=== PATIENT | male | born 1950 | race Caucasian/White ===

== ENCOUNTER 2018-10-19 06:59 | Day surgery (SDC) | payer BC, MEDICARE ==
[~2018-10-19] VITALS: Ht 157.5 cm; Wt 68.2 kg
[2018-10-19] MEDS ORDERED: zantac (07:58)
[2018-10-19] MEDS ORDERED: lipitor (07:58)
[2018-10-19] MEDS ORDERED: glipizide (07:58)
[2018-10-19] MEDS ORDERED: lisinopril (07:58)
[2018-10-19] MEDS ORDERED: insulin (07:58)
[2018-10-19] MEDS ORDERED: descovy (07:58)
[2018-10-19] MEDS ORDERED: EVOTAZ (07:58)
[2018-10-19 08:05] VITALS: BP 165/84; PULSE 75; RESP 15; Ht 157.5 cm; Wt 68.2 kg
--- NOTE | 2018-10-19 08:24 | PREAC ---
Date/Time of Note Date/Time of Note DATE: 10/19/18 TIME: 08:22 Anesthesia Eval and Record Evaluation Time Pre-Procedure Interview DATE: 10/19/18 TIME: 08:22 Age 68 Sex male NPO: 8 hrs Preoperative diagnosis ABDOMINAL PAIN Planned procedure EGD COLON Past Medical History Past Medical History: Includes Cardio: HTN, Dyslipidemia Endo: Diabetes Heme: Other (HIV) Surgery & Anesthesia Issues No known issue Meds Anticoagulation: No Beta Belén within 24 hr: No Reason Beta Belén not given: Pt. not on B-Belén Reported Medications [evotaz] No Conflict Check 10/19/18 [descovy] No Conflict Check 10/19/18 [glipizide] No Conflict Check 10/19/18 [insulin] No Conflict Check 10/19/18 [lipitor] No Conflict Check 10/19/18 [lisinopril] No Conflict Check 10/19/18 [zantac] No Conflict Check 10/19/18 Meds reviewed: Yes Allergies Coded Allergies: No Known Allergy (Unverified , 10/19/18) Allergies Reviewed: Yes Labs/Studies Labs Reviewed: Reviewed by anesthesiologist test: N/A Pre-procedure Exam Airway: Adequate mouth opening, Adequate thyromental dist Mallampati: Mallampati I Teeth: Normal Lung: Normal Heart: Normal ASA Physical Status ASA physical status: 3 Emergency: None Planned Anesthetic General/MAC: MAC Planned Pain Management Parenteral pain med Pre-operative Attestations Prior to commencing anesthesia and surgery, the patient was re-evaluated, there was verification of: *The patient's identity *The results of appropriate recent lab work and preoperative vital signs *The above evaluation not changing prior to induction *Anesthetic plan, risk benefits, alternative and complications discussed with patient/family; questions answered; patient/family understands, accepts and wishes to proceed. RENETTA JAVIER October 19, 2018 08:24
[2018-10-19] MEDS ORDERED: ONDANSETRON 4 MG INJ IV PRN (08:30)
[2018-10-19] MEDS ORDERED: LABETALOL HCL 20MG INJ IV PRN (08:30)
[2018-10-19] MEDS ORDERED: FENTAnyl 50 MCG/ML VIAL IV PRN (08:30)
[2018-10-19] MEDS ORDERED: hydrALAzine 20 MG INJ IV PRN (08:30)
[2018-10-19] MEDS ORDERED: EPHEDrine 25 MG/5 ML SYG IV PRN (08:30)
[2018-10-19] MEDS ORDERED: PROPOFOL 60 ML ONE (08:36)
[2018-10-19] MEDS ORDERED: LIDOCAINE 2% (SDV) 5 ML INJ ONE (08:36)
[2018-10-19 09:24] VITALS: BP 116/58; PULSE 72; RESP 17
[2018-10-19 09:43] VITALS: BP 137/79; PULSE 72; RESP 15
--- NOTE | 2018-10-19 11:13 | PAC ---
Date/Time of Note Date/Time of Note DATE: 10/19/18 TIME: 11:12 Post-Anesthesia Notes Post-Anesthesia Note Last documented vital signs Vital Signs Date Temp Pulse Resp B/P (MAP) Pulse Ox O2 O2 Flow FiO2 Time Delivery Rate 10/19/18 98.3 72 15 137/79 98 Room Air 1112 (98) Activity: WNL Respiratory function: WNL Cardiovascular function: WNL Mental status: Baseline Pain reasonably controlled: Yes Hydration appropriate: Yes Nausea/Vomiting absent: Yes RENETTA JAVIER October 19, 2018 11:13
== END 2018-10-19 14:09 | disposition home or self-care (01) ==
LOC: GIL 06:59
PROVIDERS: ATTEND Internal Medicine Gastroenterology
DX: K92.1 Melena (principal); K64.8 Other hemorrhoids; E11.9 Type 2 diabetes mellitus without complications; I10 Essential (primary) hypertension; E78.5 Hyperlipidemia, unspecified
CPT/HCPCS: 82962; 88305; 88312